=== PATIENT | female | born 1985 | race Caucasian/White ===

== ENCOUNTER 2019-05-11 18:47 | Emergency (ER) | payer OTHER ==
[2019-05-11] MEDS ORDERED: HYDROCODONE/ACETAMINOPHEN 5-325 MG TABLET PO ONE (22:15)
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
[2019-05-12 02:23] VITALS: BP 149/97
== END 2019-05-12 00:04 | disposition home or self-care (01) ==
LOC: ER 18:47
DX: S83.92XA Sprain of unspecified site of left knee, initial encounter (principal); S93.402A Sprain of unspecified ligament of left ankle, initial encounter; S39.012A Strain of muscle, fascia and tendon of lower back, initial encounter; M25.512 Pain in left shoulder; M25.562 Pain in left knee; M79.672 Pain in left foot; M25.572 Pain in left ankle and joints of left foot; V47.5XXA Car driver injured in collision with fixed or stationary object in traffic accident, initial encounter; I10 Essential (primary) hypertension; E11.9 Type 2 diabetes mellitus without complications; Z87.891 Personal history of nicotine dependence
CPT/HCPCS: 99283; 81025; 73610; 73630; 73564; 72110; 73030; L1902